=== PATIENT | female | born 1990 | race Caucasian/White ===

== ENCOUNTER 2016-10-26 19:38 | Emergency (ER) | payer SELFPAY ==
[2016-10-26 19:49] VITALS: BP 114/83
--- NOTE | 2016-10-26 19:57 | EDM.PDOC ---
ED HPI GENERAL MEDICAL PROBLEM - General Chief Complaint: Skin Complaint Stated Complaint: RASH ALL OVER BODY Time Seen by Provider: 10/26/16 19:48 Source of Information: Reports: Patient, RN Notes Reviewed History Limitations: Reports: No Limitations - History of Present Illness INITIAL COMMENTS - FREE TEXT/NARRATIVE: The patient states that she developed a pruritic rash all over her body yesterday, with some local swelling. The rash does not seem to extend to her face, but she feels pruritic everywhere else. She states that she took some Benadryl which helped, but the rash then recurred. She has been taking Benadryl repeatedly since. She denies any symptoms of angioedema, such as lip, tongue, or throat swelling. No dyspnea or wheezing. No recent fever. The patient denies recent travel. She denies any recent bug or tick bites. No recent hiking. No prior similar symptoms. The patient does not have a PCP. 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 Other OB/BYN History: - Infectious Disease History Infectious Disease History: Reports: Chicken Pox - Past Surgical History HEENT Surgical History: Reports: Oral Surgery ([place] teeth extraction) Female Surgical History: Reports: D&C (x 1), Tubal Ligation Social & Family History - Family History Family Medical History: Noncontributory Cardiac: Reports: Hypertension - Tobacco Use Smoking Status *Q: Never Smoker Second Hand Smoke Exposure: No - Caffeine Use Caffeine Use: Reports: Coffee, Energy Drinks, Soda - Alcohol Use Alcohol Use History: Yes Days Per Week of Alcohol Use: 0 Alcohol Use Frequency: Rarely - Recreational Drug Use Recreational Drug Use: No - Living Situation & Occupation Living situation: Reports: Single, with Significant Other (Boyfriend), with Family (Son, daughter) Occupation: Employed (Part-time at [email or web address]) ED ROS GENERAL - Review of Systems Review Of Systems: See Below Constitutional: Reports: No Symptoms HEENT: Reports: No Symptoms Respiratory: Reports: No Symptoms Cardiovascular: Reports: No Symptoms Endocrine: Reports: No Symptoms GI/Abdominal: Reports: No Symptoms : Reports: No Symptoms Musculoskeletal: Reports: No Symptoms Skin: Reports: No Symptoms Neurological: Reports: No Symptoms Psychiatric: Reports: No Symptoms Hematologic/Lymphatic: Reports: No Symptoms Immunologic: Reports: No Symptoms ED EXAM, SKIN/RASH Exam: See Below Exam Limited By: No Limitations General Appearance: Alert, WD/WN, No Apparent Distress Eye Exam: Bilateral Eye: Normal Inspection Ears: Normal External Exam, Hearing Grossly Normal Nose: Normal Inspection, No Blood Throat/Mouth: Normal Inspection, Normal Lips, Normal Teeth, Normal Gums, Normal Oropharynx, Normal Voice, No Airway Compromise Head: Atraumatic, Normocephalic Neck: Normal Inspection, Full Range of Motion Respiratory/Chest: No Respiratory Distress, Lungs Clear, Normal Breath Sounds, No Accessory Muscle Use Cardiovascular: Normal Peripheral Pulses, Regular Rate, Rhythm, No Gallop, No JVD, No Murmur, No Rub Peripheral Pulses: 4+: Radial (L), Radial (R) GI/Abdominal: Normal Bowel Sounds, Soft, Non-Tender, No Organomegaly, No Distention, No Abnormal Bruit, No Mass (Female) Exam: Deferred Rectal (Female) Exam: Deferred Back Exam: Normal Inspection, Full Range of Motion Extremities: Normal Range of Motion, Non-Tender, Normal Capillary Refill Neurological: Alert, Oriented, Normal Cognition, No Motor/Sensory Deficits Psychiatric: Normal Affect Skin: Warm, Dry, Intact, Normal Color, Rash (Several erythematous papules measuring approximately 0.5 cm diameter, likely blanchable, scattered primarily on the extremities and lower abdomen. Only a couple, if any lesions noted on the back. Mild swelling to the feet. No lesions noted on the palms or soles, although the patient reports pruritus to these areas.) Lymphatic: No Adenopathy Course - Vital Signs Last Recorded V/S: Last Vital Signs Temp 36.7 C 10/26/16 19:46 Pulse 76 10/26/16 19:46 Resp 20 10/26/16 19:46 BP 114/83 10/26/16 19:46 Pulse Ox 98 10/26/16 19:46 - Orders/Labs/Meds Meds: Medications Discontinued Medications Generic Name Dose Route Start Last Admin Trade Name Cristina REALN Reason Stop Dose Admin Prednisone 60 mg 10/26/16 20:27 10/26/16 20:35 Prednisone PO 10/26/16 20:28 60 mg ONETIME STA Administration - Re-Assessments/Exams Free Text/Narrative Re-Assessment/Exam: 10/26/16 20:31 The etiology of the patient's rash is unclear. [place] spotted fever was considered, however, the patient has not had a fever, headache, or nausea, and while she has some swelling that makes her joints tight, she has not had true arthralgias, and while she has some muscle aches associated with exercising, she has not had true myalgias. Additionally, she has not been traveling or out hiking, and does not recall having been bitten by a tick or any other insect. Contact dermatitis is less likely, because, as above, she has not been outside, or exposed to toxins such as poison chao. The distribution does not fit with atopic dermatitis. The appearance of the rash itself, along with the distribution does not fit with bullous pemphigoid. The appearance of the rash does not fit with cutaneous T-cell lymphoma. The distribution of the rash does not fit with dermatitis herpetiformis. The appearance of the rash and the distribution does not fit with dermatophyte infection. The appearance of the rash does not fit with folliculitis. The distal B shows rash does not fit with lichen planus or lichen simplex chronicus. The appearance of the rash and distribution do not fit with scabies. Because the patient derives temporary relief with Benadryl, I have to conclude that this is some sort of an allergic reaction. I'm going to treat her with prednisone, but will also refer her to a Packaging Assembler, should her symptoms not improve with prednisone, or should her symptoms recur after the prednisone is finished. Departure - Departure Time of Disposition: 20:33 Disposition: Home, Self-Care 01 Condition: Good Clinical Impression: Pruritic rash - Discharge Information Prescriptions: Prednisone [IJD: predniSONE] 20 mg PO QPM #5 tab Instructions: Pruritus Referrals: PCP,None [Primary Care Provider] - Javier Callejas MD [Ordering Only Provider] - Forms: ED Department Discharge Additional Instructions: You were seen in the emergency room for a generalized itchy rash. The cause of her rash is unclear, but appears to be some sort of an allergic reaction. You have been started on the steroid medicine prednisone. Take 1 tablet with dinner, starting tomorrow, 10/27/2016, as prescribed. Finish the entire prescription unless told otherwise by a doctor. You may also take an antihistamine, such as Benadryl or Claritin. If your symptoms fail to improve, or if they recur after you've finished the prednisone, please follow-up with the Packaging Assembler Dr. Callejas. If any other problems, please do not hesitate to return to the ER.
[2016-10-26] MEDS ORDERED: predniSONE 20 MG Tab PO STA (20:27)
== END 2016-10-26 20:50 | disposition home or self-care (01) ==
LOC: JD.ED 19:38
DX: L29.9 Pruritus, unspecified (principal); Z79.899 Other long term (current) drug therapy; Z98.51 Tubal ligation status; Z98.890 Other specified postprocedural states
CPT/HCPCS: 99283; A9270

== ENCOUNTER 2016-10-30 08:47 | Emergency (ER) | payer SELFPAY ==
[2016-10-30 08:56] VITALS: BP 119/72
[2016-10-30] MEDS ORDERED: Famotidine 20 MG Tab PO ONE (09:03)
[2016-10-30] MEDS ORDERED: methylPREDNISolone Sodium Succinate 125 MG/2 ML SDV IM ONE (09:03)
--- NOTE | 2016-10-30 09:09 | EDM.PDOC ---
ED HPI GENERAL MEDICAL PROBLEM - General Chief Complaint: Skin Complaint Stated Complaint: SKIN COMPLAINT/BODY RASH Time Seen by Provider: 10/30/16 08:57 Source of Information: Reports: Patient History Limitations: Reports: No Limitations - History of Present Illness INITIAL COMMENTS - FREE TEXT/NARRATIVE: The patient presents with a generalized rash. This started on Saturday. She was evaluated here and she was put on prednisone 20mg daily and continued benadryl. She has not gotten any better. She has no shortness of breath and no trouble swallowing. She has not been in contact with any allergen that she knows of. This has never happened before. Onset: Gradual Duration: Day(s): Location: Reports: Generalized Quality: Reports: Burning Severity: Moderate Improves with: Reports: None Worsens with: Reports: Other (Heat) Associated Symptoms: Reports: No Other Symptoms - Related Data Allergies Allergy/AdvReac Type Severity Reaction Status Date / Time No Known Allergies Allergy Verified 10/30/16 08:52 Home Meds: Home Meds Cholecalciferol (Vitamin D3) [Vitamin D] 1,000 units PO DAILY 10/26/16 [History] Prednisone [IJD: predniSONE] 20 mg PO QPM #5 tab 10/26/16 [Rx] Prednisone [IJD: predniSONE] 40 mg PO WITHBREAKFAST #10 tab 10/30/16 [Rx] Past Medical History - Past Health History Medical/Surgical History: Denies Medical/Surgical History HEENT History: Reports: None Cardiovascular History: Reports: None Respiratory History: Reports: None Gastrointestinal History: Reports: GERD, Other (See Below) Other Gastrointestinal History: N/V with Genitourinary History: Reports: UTI, Recurrent 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 Endocrine/Metabolic History: Reports: None Hematologic History: Reports: Anemia, Iron Deficiency Other Hematologic History: anemia during 1st . - Infectious Disease History Infectious Disease History: Reports: Chicken Pox - Past Surgical History HEENT Surgical History: Reports: Oral Surgery Female Surgical History: Reports: D&C, Tubal Ligation Social & Family History - Family History Family Medical History: Noncontributory Cardiac: Reports: Hypertension - Tobacco Use Smoking Status *Q: Never Smoker Years of Tobacco use: 1 Used Tobacco, but Quit: No Second Hand Smoke Exposure: No - Caffeine Use Caffeine Use: Reports: Coffee, Energy Drinks, Soda - Alcohol Use Days Per Week of Alcohol Use: 0 - Recreational Drug Use Recreational Drug Use: No - Living Situation & Occupation Living situation: Reports: Single, with Significant Other (Boyfriend), with Family (Son, daughter) Occupation: Employed (Part-time at [employer]) ED ROS GENERAL - Review of Systems Review Of Systems: See Below Constitutional: Reports: No Symptoms HEENT: Reports: No Symptoms Respiratory: Reports: No Symptoms Cardiovascular: Reports: No Symptoms Endocrine: Reports: No Symptoms GI/Abdominal: Reports: No Symptoms : Reports: No Symptoms Musculoskeletal: Reports: No Symptoms Skin: Reports: Rash ED EXAM, SKIN/RASH Exam: See Below Exam Limited By: No Limitations General Appearance: Alert, No Apparent Distress Ears: Normal External Exam Nose: Normal Inspection Head: Atraumatic, Normocephalic Neck: Normal Inspection Respiratory/Chest: No Respiratory Distress, Lungs Clear, Normal Breath Sounds Cardiovascular: Regular Rate, Rhythm, No Edema, No Murmur GI/Abdominal: Soft, Non-Tender, No Organomegaly, No Mass Back Exam: Normal Inspection Extremities: Normal Inspection Neurological: Alert, Oriented, No Motor/Sensory Deficits Skin: Rash (urticaria) Course - Vital Signs Last Recorded V/S: Last Vital Signs Temp 97.2 F 10/30/16 08:53 Pulse 87 10/30/16 08:53 Resp 16 10/30/16 08:53 BP 119/72 10/30/16 08:53 Pulse Ox 95 10/30/16 08:53 - Orders/Labs/Meds Orders: Active Orders 24 hr Category Date Time Status Famotidine [Pepcid] Med 10/30/16 09:03 Once 20 mg PO ONETIME ONE Meds: Medications Discontinued Medications Generic Name Dose Route Start Last Admin Trade Name Cristina PRN Reason Stop Dose Admin Methylprednisolone Sodium Succinate 125 mg 10/30/16 09:03 Solu-Medrol IM 10/30/16 09:04 ONETIME ONE - Re-Assessments/Exams Free Text/Narrative Re-Assessment/Exam: 10/30/16 09:09 I ordered solu-medrol 125mg IM and pepcid. I will up her prednisone and have her take pepcid also. She has an appointment with derm on the . Departure - Departure Time of Disposition: 09:10 Disposition: Home, Self-Care 01 Condition: Good Clinical Impression: Pruritic rash - Discharge Information Prescriptions: Prednisone [IJD: predniSONE] 40 mg PO WITHBREAKFAST #10 tab Referrals: PCP,None [Primary Care Provider] - Danica Simon PA [Physician Manufacturing Engineer Supervisor] - Forms: ED Department Discharge Additional Instructions: Take the prednisone 2 pills or 40mg daily for 5 days. Take benadryl 50mg every 6 hours as needed for the rash. Take pepcid daily for 5 days. Follow up with your commercial loan closer on the . You may also follow up with Danica Simon in our clinic if you have any other problems. - My Orders Last 24 Hours: My Active Orders 10/30/16 09:03 Famotidine [Pepcid] 20 mg PO ONETIME ONE - Assessment/Plan Last 24 Hours: My Active Orders 10/30/16 09:03 Famotidine [Pepcid] 20 mg PO ONETIME ONE
== END 2016-10-30 09:27 | disposition home or self-care (01) ==
LOC: JD.ED 08:47
DX: L50.9 Urticaria, unspecified (principal); L29.9 Pruritus, unspecified; K21.9 Gastro-esophageal reflux disease without esophagitis; Z79.899 Other long term (current) drug therapy; Z87.440 Personal history of urinary (tract) infections; Z86.2 Personal history of diseases of the blood and blood-forming organs and certain disorders involving the immune mechanism
CPT/HCPCS: 96372; 99282; A9270; J2930; 99283

== ENCOUNTER 2019-08-28 09:37 | Emergency (ER) | payer MEDICAID ==
--- NOTE | 2019-08-28 10:33 | EDM.PDOC ---
ED HPI GENERAL MEDICAL PROBLEM - General Chief Complaint: Back Pain or Injury Stated Complaint: BACK PAIN/COUGHED UP BLOOD Time Seen by Provider: 08/28/19 10:04 Source of Information: Reports: Patient, RN Notes Reviewed - History of Present Illness INITIAL COMMENTS - FREE TEXT/NARRATIVE: 29 yr old female has been having some R mid back pain for about a week. Occasional radiation of pain to R upper abd. Pain at times is worse with deep respiration. Has not been ill with cough, sore throat, fever or chills. No known covid exposure. Today when working out at [employer] she did cough up a couple of small blood clots. She did have a mild nose bleed earlier this morning so agrees that this could have been post nasal drainage. No bladder sx. No personal hx gallbladder problems. Right Back Pain Score (Numeric/FACES): 6 - Related Data Allergies Allergy/AdvReac Type Severity Reaction Status Date / Time No Known Allergies Allergy Verified 08/28/19 09:50 Home Meds: Home Meds Cholecalciferol (Vitamin D3) [Vitamin D] 1,000 units PO DAILY 10/26/16 [History] Fish Oil/Lydia-3 Fatty Acids [Fish Oil 1,000 MG] 0 mg PO DAILY 08/28/19 [History ] Lactobacillus Rhamnosus [id number] [Probiotic Digestive Care] 1 cap PO DAILY [History] Past Medical History - Past Health History Medical/Surgical History: Denies Medical/Surgical History HEENT History: Reports: None Cardiovascular History: Reports: None Respiratory History: Reports: None Gastrointestinal History: Reports: GERD, Other (See Below) Other Gastrointestinal History: N/V with Genitourinary History: Reports: UTI, Recurrent 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 Endocrine/Metabolic History: Reports: None Hematologic History: Reports: Anemia, Iron Deficiency Other Hematologic History: anemia during 1st . - Infectious Disease History Infectious Disease History: Reports: Chicken Pox - Past Surgical History HEENT Surgical History: Reports: Oral Surgery Other HEENT Surgeries/Procedures: wisdom teeth removed. Female Surgical History: Reports: D&C, Tubal Ligation Social & Family History - Family History Family Medical History: Noncontributory Cardiac: Reports: Hypertension - Tobacco Use Smoking Status *Q: Never Smoker Second Hand Smoke Exposure: No - Caffeine Use Caffeine Use: Reports: Coffee, Energy Drinks - Recreational Drug Use Recreational Drug Use: No - Living Situation & Occupation Living situation: Reports: Single, with Significant Other (Boyfriend), with Family (Son, daughter) Occupation: Employed (Part-time at [employer]) ED ROS GENERAL - Review of Systems Review Of Systems: See Below Constitutional: Denies: Fever, Chills, Diaphoresis HEENT: Reports: Nosebleed Respiratory: Denies: Shortness of Breath, Cough (no frequent or repetitve cough , she did "cough up a couple of blood clots a short time ago") Cardiovascular: Denies: Chest Pain GI/Abdominal: Reports: Abdominal Pain. Denies: Diarrhea, Hematochezia, Melena, Nausea, Vomiting Musculoskeletal: Reports: Back Pain. Denies: Shoulder Pain, Arm Pain Skin: Reports: No Symptoms Neurological: Reports: No Symptoms ED EXAM, GENERAL - Physical Exam Exam: See Below General Appearance: Alert, No Apparent Distress Eye Exam: Bilateral Eye: PERRL Throat/Mouth: Normal Inspection Head: Atraumatic Neck: Supple Respiratory/Chest: No Respiratory Distress, Lungs Clear, Normal Breath Sounds. No: Rales, Rhonchi, Wheezing Cardiovascular: Regular Rate, Rhythm GI/Abdominal: Soft, Non-Tender Back Exam: Normal Inspection, Full Range of Motion. No: Paraspinal Tenderness, Vertebral Tenderness Extremities: Normal Inspection, Normal Range of Motion Neurological: Alert, Oriented, No Motor/Sensory Deficits Skin Exam: Warm, Dry, Normal Color Course - Vital Signs Last Recorded V/S: Last Vital Signs Temp 98.5 F 08/28/19 11:48 Pulse 80 08/28/19 11:48 Resp 16 08/28/19 11:48 BP 112/82 08/28/19 11:48 Pulse Ox 98 08/28/19 11:48 - Orders/Labs/Meds Labs: Laboratory Tests 08/28/19 08/28/19 08/28/19 Range/Units 10:27 10:27 10:27 WBC 5.83 (3.98-10.04) K/mm3 RBC 4.16 (3.98-5.22) M/mm3 Hgb 11.7 D (11.2-15.7) gm/dl Hct 36.5 (34.1-44.9) % MCV 87.7 D (79.4-94.8) fl MCH 28.1 (25.6-32.2) pg MCHC 32.1 L (32.2-35.5) g/dl RDW Std Deviation 40.6 (36.4-46.3) fL Plt Count 265 (182-369) K/mm3 MPV 8.7 L (9.4-12.3) fl Neut % (Auto) 67.7 (34.0-71.1) % Lymph % (Auto) 21.3 (19.3-51.7) % [place] % (Auto) 10.3 (4.7-12.5) % Eos % (Auto) 0.5 L (0.7-5.8) Baso % (Auto) 0.2 (0.1-1.2) % Neut # (Auto) 3.95 (1.56-6.13) K/mm3 Lymph # (Auto) 1.24 (1.18-3.74) K/mm3 [place] # (Auto) 0.60 H (0.24-0.36) K/mm3 Eos # (Auto) 0.03 L (0.04-0.36) K/mm3 Baso # (Auto) 0.01 (0.01-0.08) K/mm3 Sodium 138 (136-145) mEq/L Potassium 3.7 (3.5-5.1) mEq/L Chloride 103 (98-107) mEq/L Carbon Dioxide 27 (21-32) mEq/L Anion Gap 11.7 (5-15) BUN 12 (7-18) mg/dL Creatinine 0.6 (0.55-1.02) mg/dL Est Cr Clr Drug Dosing 124.49 mL/min Estimated GFR (MDRD) > 60 (>60) mL/min BUN/Creatinine Ratio 20.0 H (14-18) Glucose 104 (74-106) mg/dL Calcium 9.2 (8.5-10.1) mg/dL Total Bilirubin 0.5 (0.2-1.0) mg/dL AST 20 (15-37) U/L ALT 30 (14-59) U/L Alkaline Phosphatase 56 (46-116) U/L C-Reactive Protein 1.3 H* (<1.0) mg/dL Total Protein 7.2 (6.4-8.2) g/dl Albumin 3.7 (3.4-5.0) g/dl Globulin 3.5 gm/dL Albumin/Globulin Ratio 1.1 (1-2) HCG, Qual (NEGATIVE) Urine Color (Yellow) Urine Appearance (Clear) Urine pH (5.0-8.0) Ur Specific [place] (1.005-1.030) Urine Protein (Negative) Urine Glucose (UA) (Negative) Urine Ketones (Negative) Urine Occult Blood (Negative) Urine Nitrite (Negative) Urine Bilirubin (Negative) Urine Urobilinogen (0.2-1.0) Ur Leukocyte Esterase (Negative) Urine RBC (0-5) /hpf Urine WBC (0-5) /hpf Ur Squamous Epith Cells (0-5) /hpf Urine Bacteria (FEW) /hpf Urine Mucus (FEW) /hpf 08/28/19 08/28/19 Range/Units 10:27 10:55 WBC (3.98-10.04) K/mm3 RBC (3.98-5.22) M/mm3 Hgb (11.2-15.7) gm/dl Hct (34.1-44.9) % MCV (79.4-94.8) fl MCH (25.6-32.2) pg MCHC (32.2-35.5) g/dl RDW Std Deviation (36.4-46.3) fL Plt Count (182-369) K/mm3 MPV (9.4-12.3) fl Neut % (Auto) (34.0-71.1) % Lymph % (Auto) (19.3-51.7) % [place] % (Auto) (4.7-12.5) % Eos % (Auto) (0.7-5.8) Baso % (Auto) (0.1-1.2) % Neut # (Auto) (1.56-6.13) K/mm3 Lymph # (Auto) (1.18-3.74) K/mm3 [place] # (Auto) (0.24-0.36) K/mm3 Eos # (Auto) (0.04-0.36) K/mm3 Baso # (Auto) (0.01-0.08) K/mm3 Sodium (136-145) mEq/L Potassium (3.5-5.1) mEq/L Chloride (98-107) mEq/L Carbon Dioxide (21-32) mEq/L Anion Gap (5-15) BUN (7-18) mg/dL Creatinine (0.55-1.02) mg/dL Est Cr Clr Drug Dosing mL/min Estimated GFR (MDRD) (>60) mL/min BUN/Creatinine Ratio (14-18) Glucose (74-106) mg/dL Calcium (8.5-10.1) mg/dL Total Bilirubin (0.2-1.0) mg/dL AST (15-37) U/L ALT (14-59) U/L Alkaline Phosphatase (46-116) U/L C-Reactive Protein (<1.0) mg/dL Total Protein (6.4-8.2) g/dl Albumin (3.4-5.0) g/dl Globulin gm/dL Albumin/Globulin Ratio (1-2) HCG, Qual Negative (NEGATIVE) Urine Color Yellow (Yellow) Urine Appearance Clear (Clear) Urine pH 6.5 (5.0-8.0) Ur Specific [place] 1.015 (1.005-1.030) Urine Protein Negative (Negative) Urine Glucose (UA) Negative (Negative) Urine Ketones 1+ H (Negative) Urine Occult Blood Negative (Negative) Urine Nitrite Negative (Negative) Urine Bilirubin Negative (Negative) Urine Urobilinogen 0.2 (0.2-1.0) Ur Leukocyte Esterase Trace H (Negative) Urine RBC 0-5 (0-5) /hpf Urine WBC 5-10 H (0-5) /hpf Ur Squamous Epith Cells 0-5 (0-5) /hpf Urine Bacteria Few (FEW) /hpf Urine Mucus Few (FEW) /hpf - Re-Assessments/Exams Free Text/Narrative Re-Assessment/Exam: 08/28/19 15:09 CXR nl, labs nl, discharge instr. as documented. Feel strongly that the blood clots she coughed up this AM were post nasal drainage from the epistaxis that she had earlier today. Departure - Departure Time of Disposition: 11:40 Disposition: Home, Self-Care 01 Condition: Fair Clinical Impression: Back pain Abdominal pain Qualifiers: Abdominal location: generalized Qualified Code(s): R10.84 - Generalized abdominal pain - Discharge Information Instructions: Acute Back Pain, Adult, Abdominal Pain, Adult, [id number] Referrals: PCP,None [Primary Care Provider] - Forms: ED Department Discharge Additional Instructions: Avoid heavy lifting or anything that makes the back pain worse until discomfort resolving. Alternate ice and heat as needed. Follow up clinic as needed, return to ED as needed if symptoms worsening in any way. Sepsis Event Note - Evaluation Sepsis Screening Result: No Definite Risk - Focused Exam Vital Signs: Vital Signs Temp Pulse Resp BP Pulse Ox 08/28/19 11:48 98.5 F 80 16 112/82 98 08/28/19 09:45 99.2 F 92 16 125/85 98 Date Exam was Performed: 08/28/19 Time Exam was Performed: 15:08
--- NOTE | 2019-08-28 11:38 | CR ---
Chest: Portable view of the chest was obtained. Comparison: Prior chest x-ray of 08/18/15. Heart size and mediastinum are normal. Lungs are clear with no acute parenchymal change. Bony structures are grossly intact. Impression: 1. Nothing acute is seen on portable chest x-ray. Diagnostic code #1 This report was dictated in MDT
[2019-08-28 11:52] VITALS: BP 112/82; PULSE 80
== END 2019-08-28 11:48 | disposition home or self-care (01) ==
LOC: JD.ED 09:37
DX: M54.6 Pain in thoracic spine (principal); R10.84 Generalized abdominal pain
CPT/HCPCS: 36415; 71045; 71045-26; 80053; 81001; 84703; 85025; 86140; 99282; 99283

== ENCOUNTER 2021-01-28 14:33 | Emergency (ER) | payer SELFPAY ==
[2021-01-28 14:42] VITALS: BP 130/87; PULSE 114
[2021-01-28] MEDS ORDERED: Ketorolac 60 MG/2 ML SDV IM ONE (14:49)
[2021-01-28] MEDS ORDERED: Orphenadrine 100 MG Tab.ER PO ONE (14:49)
--- NOTE | 2021-01-28 14:55 | EDM.PDOC ---
ED HPI GENERAL MEDICAL PROBLEM - General Chief Complaint: Back Pain or Injury Stated Complaint: BACK PAIN Time Seen by Provider: 01/28/21 14:38 Source of Information: Reports: Patient, RN Notes Reviewed History Limitations: Reports: No Limitations - History of Present Illness INITIAL COMMENTS - FREE TEXT/NARRATIVE: Patient is a 30-year-old female presents to the ER for her low back pain. States that she was performing in a weightlifting competition, and performing a kettle corbett snatch type lift, states that when she, from the squatting position to try to raise a kettle corbett overhead, she felt a pop or snap in her low back and had pain in this area and it seems to radiate down her right leg after this. States that she has a pretty high pain tolerance and this is some of the worst pain she is ever felt in her life. Took 2 tablets of Tylenol prior to coming to the ER but this does not seem to be helping much. Patient is visibly uncomfortable on the ER cot states that sitting down, while she puts pressure on her back seems to make things a little bit worse. When she was driving over here, she maybe felt some tingling in her right foot but this has subsided since being in the ER. She has no prior history of any sort injuries to her back at this time. Patient denies any other sick-like symptoms, fever/chills, cough/shortness of breath, nausea/vomiting/diarrhea. Left Back Pain Score (Numeric/FACES): 8 - Related Data Allergies Allergy/AdvReac Type Severity Reaction Status Date / Time No Known Allergies Allergy Verified 01/28/21 14:42 Home Meds: Home Meds Cholecalciferol (Vitamin D3) [Vitamin D] 1,000 units PO DAILY 10/26/16 [History] Fish Oil/Rodessa-3 Fatty Acids [Fish Oil 1,000 MG] 0 mg PO DAILY 08/28/19 [History] Lactobacillus Rhamnosus R0011 [Probiotic Digestive Care] 1 cap PO DAILY 08/28/19 [History] Hydrocodone/Acetaminophen [HYDROcodone-Acetaminophen 5-325 MG] 1 each PO Q6H PRN #12 tablet 01/28/21 [Rx] Orphenadrine [Norflex] 100 mg PO BID PRN #20 tab 01/28/21 [Rx] Past Medical History Gastrointestinal History: Reports: GERD, Other (See Below) Other Gastrointestinal History: N/V with Genitourinary History: Reports: UTI, Recurrent STAFFING SPECIALIST History: Reports: Ectopic , , Spontaneous (x3) : 4 Para: 1 Psychiatric History: Reports: Depression Other Psychiatric History: states is on med for depression. Hematologic History: Reports: Anemia, Iron Deficiency Other Hematologic History: anemia during 1st . - Infectious Disease History Infectious Disease History: Reports: Chicken Pox - Past Surgical History HEENT Surgical History: Reports: Oral Surgery Other HEENT Surgeries/Procedures: wisdom teeth removed. Female Surgical History: Reports: D&C, Tubal Ligation Social & Family History - Family History Family Medical History: No Pertinent Family History Cardiac: Reports: Hypertension - Tobacco Use Tobacco Use Status *Q: Never Tobacco User Second Hand Smoke Exposure: No - Caffeine Use Caffeine Use: Reports: None - Recreational Drug Use Recreational Drug Use: No - Living Situation & Occupation Living situation: Reports: Single, with Significant Other (Boyfriend), with Family (Son, daughter) Occupation: Employed (Part-time at [employer]) ED ROS GENERAL - Review of Systems Review Of Systems: Comprehensive ROS is negative, except as noted in HPI. ED EXAM,LOWER BACK PAIN/INJURY - Physical Exam Exam: See Below Exam Limited By: No Limitations General Appearance: Alert, WD/WN, No Apparent Distress Respiratory/Chest: No Respiratory Distress, Lungs Clear, Normal Breath Sounds, No Accessory Muscle Use, Chest Non-Tender Cardiovascular: Normal Peripheral Pulses, Regular Rate, Rhythm, No Edema GI/Abdominal: Normal Bowel Sounds, Soft, Non-Tender, No Distention, No Mass Extremities: Normal Inspection, Normal Capillary Refill Neurological: Alert, Normal Mood/Affect, Normal Dorsiflexion, Normal Plantar Flexion, Straight Leg Raise (R). No: Straight Leg Raise (L), Saddle Anesthesia Psychiatric: Normal Affect, Normal Mood, Tearful Skin Exam: Warm, Dry, Intact, Normal Color, No Rash Course - Vital Signs Last Recorded V/S: Last Vital Signs Temp 98.1 F 01/28/21 14:41 Pulse 114 H 01/28/21 14:41 Resp 20 01/28/21 14:41 BP 130/87 01/28/21 14:41 Pulse Ox 95 01/28/21 14:41 - Orders/Labs/Meds Orders: Active Orders 24 hr Category Date Time Status Lumbar Spine 2 or 3V [CR] Stat Exams 01/28/21 14:47 Ordered Labs: Laboratory Tests 01/28/21 Range/Units 14:40 Urine Color Yellow (Yellow) Urine Appearance Clear (Clear) Urine pH 6.0 (5.0-8.0) Ur Specific [place] 1.020 (1.005-1.030) Urine Protein Negative (Negative) Urine Glucose (UA) Negative (Negative) Urine Ketones Negative (Negative) Urine Occult Blood Negative (Negative) Urine Nitrite Negative (Negative) Urine Bilirubin Negative (Negative) Urine Urobilinogen 0.2 (0.2-1.0) Ur Leukocyte Esterase Negative (Negative) Urine RBC 0-5 (0-5) /hpf Urine WBC 0-5 (0-5) /hpf Ur Squamous Epith Cells 5-10 H (0-5) /hpf Urine Bacteria Few (FEW) /hpf Urine Mucus Not seen (FEW) /hpf Meds: Medications Discontinued Medications Generic Name Dose Route Start Last Admin Trade Name Cristina PRN Reason Stop Dose Admin Ketorolac Tromethamine 60 mg 01/28/21 14:49 01/28/21 15:02 Ketorolac 60 Mg/2 Ml Sdv IM 01/28/21 14:50 60 mg ONETIME ONE Administration Orphenadrine Citrate 100 mg 01/28/21 14:49 01/28/21 15:02 Orphenadrine 100 Mg Tab.Er PO 01/28/21 14:50 100 mg ONETIME ONE Administration - Re-Assessments/Exams Free Text/Narrative Re-Assessment/Exam: 01/28/21 14:54 Patient presents to the ER for evaluation of her low back pain. She does appear to be fairly uncomfortable in the ER cot, we will go ahead and try Toradol and Norflex initially and add other stronger meds if needed. We will also get a lumbar x-ray for evaluation. 01/28/21 15:45 Patient states she is a little bit more comfortable. Patient's lumbar x-rays were reviewed by myself and Dr. Smith, no acute bony abnormalities were appreciated. Lumbar heights appear to be within normal limits, and there is no obvious sign of any sort of acute compression fracture at this time. We will go ahead and treat the patient conservatively and have her follow-up in 7 to 10 days if not much better. Departure - Departure Time of Disposition: 15:45 Disposition: Home, Self-Care 01 Condition: Good Clinical Impression: Acute lumbar myofascial strain Qualifiers: Encounter type: initial encounter Qualified Code(s): S39.012A - Strain of muscle, fascia and tendon of lower back, initial encounter - Discharge Information *PRESCRIPTION DRUG MONITORING PROGRAM REVIEWED*: Yes *COPY OF PRESCRIPTION DRUG MONITORING REPORT IN PATIENT ELICEO: No Prescriptions: Hydrocodone/Acetaminophen [HYDROcodone-Acetaminophen 5-325 MG] 1 each PO Q6H PRN #12 tablet PRN Reason: Pain Orphenadrine [Norflex] 100 mg PO BID PRN #20 tab PRN Reason: Spasms Instructions: Back Injury Prevention, Hode-es-Mgna Referrals: PCP,None [Primary Care Provider] - Forms: ED Department Discharge Additional Instructions: You have been evaluated in the ED for your low back pain. Your x-ray demonstrated no acute fractures, or other bony abnormalities like compression fractures. Please use ice or heat as tolerated to the affected area. You may take Tylenol 500 mg or ibuprofen 600mg q6 hrs for pain relief. Please do so until you have a tolerable level of pain with activity. Do not exceed 4000mg Tylenol or 3200mg ibuprofen in a 24 hour time period. You were given a prescription for a strong pain medication, hydrocodone/acetaminophen 5/225 mg, please take 1 tab every 6 hours as needed for pain not relieved by Tylenol or ibuprofen alone. Please note this medication does contain Tylenol in it, so do not take more than 4000 mg in a 24- hour time span. These medications can be addictive, so please take as few as possible to achieve adequate pain control. These meds can also be quite constipating, recommend that you increase your oral fluid intake and take a stool softener like MiraLAX while taking these medications. Do not drive while taking this medication. You have also been given a prescription for Norflex, a muscle relaxer, please take 1 tablet 2 times a day as needed for ongoing muscle spasms/stiffness. Please be aware that if you need to take the hydrocodone medications in conjunction with the Norflex, that you might feel increasingly tired so you might want to adjust your activities as warranted. This medication was electronically sent to the [place] [facility] located in the [facility]. Please follow-up with your regular provider for re-evaluation, if your injury is not feeling much better in roughly 7 to 10 days time. Please return to ED if your symptoms should change or worsen. Sepsis Event Note (ED) - Focused Exam Vital Signs: Vital Signs Temp Pulse Resp BP Pulse Ox 01/28/21 14:41 98.1 F 114 H 20 130/87 95 - My Orders Last 24 Hours: My Active Orders 01/28/21 14:47 Lumbar Spine 2 or 3V [CR] Stat - Assessment/Plan Last 24 Hours: My Active Orders 01/28/21 14:47 Lumbar Spine 2 or 3V [CR] Stat
--- NOTE | 2021-01-28 18:00 | CR ---
Lumbar spine: AP and lateral views of the lumbar spine were obtained. Comparison: No prior lumbar spine imaging is available. There is minimal anterior wedging seen of T12. Small osteophyte is noted off the superior endplate. Other vertebral body heights are maintained. Disc spaces are maintained. Pedicles are intact. Transverse and spinous processes are intact. Sacroiliac joints are within normal limits. Impression: 1. Slight anterior wedging of T12. Uncertain if this is chronic or represents acute change. MRI would be needed to differentiate. 2. Minimal osteophyte off the superior endplate of T12. 3. Two-view lumbar spine study is otherwise unremarkable. Diagnostic code #3
== END 2021-01-28 16:47 | disposition home or self-care (01) ==
LOC: JD.ED 14:33
DX: S39.012A Strain of muscle, fascia and tendon of lower back, initial encounter (principal); X50.0XXA Overexertion from strenuous movement or load, initial encounter
CPT/HCPCS: 72100; 81001; 96372; 99283; A9270; J1885

== ENCOUNTER 2023-02-21 11:05 | Emergency (ER) | payer SELFPAY ==
[2023-02-21 12:28] LABS: HEMATOCRIT 38.1 % (37.0-47.0); HEMOGLOBIN 13.3 gm/dl (12.0-16.0); IMMATURE GRAN ABSOLUTE AUTO 0.01 K/mm3 (0.00-0.05); IMMATURE GRAN PERCENT AUTO 0.3 % (0.0-0.4); LYMPHOCYTES ABSOLUTE AUTO 1.4 K/mm3 (1.0-4.8); LYMPHOCYTES PERCENT AUTO 35.9 % (24.0-44.0); MEAN CORPUSCULAR HEMOGLOBIN 30.3 pg (28.0-32.0); MEAN CORPUSCULAR HGB CONC 34.9 g/dl (32.0-36.0); MEAN CORPUSCULAR VOLUME 86.8 fl (83.0-99.0); MEAN PLATELET VOLUME 9.5 fl (9.4-12.3); MONOCYTES ABSOLUTE AUTO 0.4 K/mm3 (0.0-0.8); MONOCYTES PERCENT AUTO 9.4 % (0.0-8.0); NEUTROPHILS ABSOLUTE AUTO 2.1 K/mm3 (1.8-7.7); NEUTROPHILS PERCENT AUTO 52.4 % (41.0-71.0); PLATELET COUNT,PLT 343 K/mm3 (150-400); RED BLOOD CELL COUNT 4.39 M/mm3 (4.10-5.30); WHITE BLOOD CELL COUNT,WBC 3.93 K/mm3 (3.9-11.3)
[2023-02-21 13:10] LABS: INR 0.97; PROTHROMBIN TIME 10.4 SECONDS (9.7-12.0)
[2023-02-21 13:11] LABS: PTT,PARTIAL THROMBOPLSTIN TIME 27.1 SECONDS (21.7-31.4)
[2023-02-21 13:21] LABS: D-DIMER QUANTITATIVE < 0.19 mg/L (0.19-0.50)
[2023-02-21 13:23] LABS: A/G RATIO 1.1 (1-2); ALANINE AMINOTRANSFERASE,ALT 32 U/L (14-59); ALBUMIN 3.8 g/dl (3.4-5.0); ALKALINE PHOSPHATASE 45 U/L (46-116); ANION GAP 9.8 (5-15); ASPARTATE AMNIOTRANSFERASE,AST 17 U/L (15-37); BILIRUBIN TOTAL 0.3 mg/dL (0.2-1.0); BLOOD UREA NITROGEN,BUN 12 mg/dL (7-18); CALCIUM 9.4 mg/dL (8.5-10.1); CARBON DIOXIDE,CO2 30 mEq/L (21-32); CHLORIDE,CL 102 mEq/L (98-107); CREATININE 0.8 mg/dL (0.55-1.02); EST CRCL DRUG DOSING (CG) 90.84 mL/min; ESTIMATED GFR 100 mL/min (>60); GLUCOSE RANDOM 90 mg/dL (70-99); POTASSIUM,K 3.8 mEq/L (3.5-5.1); PROTEIN TOTAL,TP 7.2 g/dl (6.4-8.2); SODIUM,NA 138 mEq/L (136-145); TSH 1.039 uIU/mL (0.358-3.74)
[2023-02-21 13:24] VITALS: BP 106/67; PULSE 61
[2023-02-21 13:24] LABS: TROPONIN I HIGH SENSITIVITY < 4 pg/mL (<=51)
[2023-02-21 13:39] LABS: FOLIC ACID 18.6 ng/mL (8.6-58.9)
== END 2023-02-21 14:30 | disposition home or self-care (01) ==
LOC: JD.ED 11:05
DX: R20.2 Paresthesia of skin (principal)
CPT/HCPCS: 36415; 70450; 70450-26; 80053; 82607; 82746; 82947; 84443; 84484; 85025; 85379; 85610; 85730; 93005; 93010; 99284; 99285

== ENCOUNTER 2023-07-02 14:26 | Emergency (ER) | payer SELFPAY ==
[2023-07-02 15:32] LABS: BASOPHILS PERCENT AUTO 0.4 % (0.0-1.0); EOSINOPHILS PERCENT AUTO 0.4 % (0.0-6.0); HEMATOCRIT 38.9 % (37.0-47.0); HEMOGLOBIN 13.4 gm/dl (12.0-16.0); IMMATURE GRAN ABSOLUTE AUTO 0.01 K/mm3 (0.00-0.05); IMMATURE GRAN PERCENT AUTO 0.1 % (0.0-0.4); LYMPHOCYTES ABSOLUTE AUTO 1.3 K/mm3 (1.0-4.8); LYMPHOCYTES PERCENT AUTO 18.6 % (24.0-44.0); MEAN CORPUSCULAR HEMOGLOBIN 29.2 pg (28.0-32.0); MEAN CORPUSCULAR HGB CONC 34.4 g/dl (32.0-36.0); MEAN CORPUSCULAR VOLUME 84.7 fl (83.0-99.0); MEAN PLATELET VOLUME 8.5 fl (9.4-12.3); MONOCYTES ABSOLUTE AUTO 0.4 K/mm3 (0.0-0.8); MONOCYTES PERCENT AUTO 6.3 % (0.0-8.0); NEUTROPHILS ABSOLUTE AUTO 5.2 K/mm3 (1.8-7.7); NEUTROPHILS PERCENT AUTO 74.2 % (41.0-71.0); PLATELET COUNT,PLT 305 K/mm3 (150-400); RED BLOOD CELL COUNT 4.59 M/mm3 (4.10-5.30); WHITE BLOOD CELL COUNT,WBC 6.98 K/mm3 (3.9-11.3)
[2023-07-02] MEDS: LORazepam 2 MG/ML SDV IVPUSH ONE (15:38)
[2023-07-02] MEDS: Sodium Chloride 0.9% 1,000 ML IV SCH (15:42)
[2023-07-02 16:06] LABS: A/G RATIO 1.2 (1-2); ALBUMIN 4.4 g/dl (3.4-5.0); ANION GAP 15.5 (5-15); BILIRUBIN TOTAL 0.3 mg/dL (0.2-1.0); BUN/CREATININE RATIO 17.8 (14-18); CALCIUM 9.5 mg/dL (8.5-10.1); CREATININE 0.9 mg/dL (0.55-1.02); EST CRCL DRUG DOSING (CG) 81.62 mL/min; POTASSIUM,K 3.5 mEq/L (3.5-5.1); PROTEIN TOTAL,TP 8.1 g/dl (6.4-8.2)
[2023-07-02 16:14] LABS: TSH 1.351 uIU/mL (0.358-3.74); VITAMIN D,25-HYDROXY 42.9 ng/ml (30.0-100.0)
[2023-07-02 16:39] LABS: APPEARANCE,URINE CLEAR (Clear); BILIRUBIN,URINE NEGATIVE (Negative); COLOR,URINE LIGHT YELLOW (Yellow); GLUCOSE,URINE NEGATIVE (Negative); KETONES,URINE 1+ (Negative); LEUKOCYTE ESTERASE,URINE NEGATIVE (Negative); NITRITE,URINE NEGATIVE (Negative); OCCULT BLOOD,URINE TRACE-INTACT (Negative); PROTEIN,URINE NEGATIVE (Negative); UROBILINOGEN,URINE 0.2 (0.2-1.0)
[2023-07-02 16:52] LABS: BARBITURATE SCREEN,URINE NEGATIVE (CUTOFF=200); BENZODIAZEPINES SCREEN,URINE NEGATIVE (CUTOFF=150); BUPRENORPHINE SCREEN,URINE NEGATIVE (CUTOFF=10); METHADONE SCREEN, URINE NEGATIVE (CUTOFF=200); METHAMPHETAMINES SCREEN, URINE NEGATIVE (CUTOFF=500); OXYCODONE SCREEN,URINE NEGATIVE (CUT0FF=100); THC SCREEN,URINE 20 NG/ML NEGATIVE (CUTOFF=50)
[2023-07-02 17:03] LABS: BACTERIA,URINE FEW /hpf (FEW); EPITHELIAL CELLS,URINE 0-5 /hpf (0-5); MUCUS,URINE FEW /hpf (FEW); RBC,URINE 0-5 /hpf (0-5); WBC,URINE 0-5 /hpf (0-5)
[2023-07-02 17:05] LABS: AMPHETAMINES SCREEN, URINE NEGATIVE (CUTOFF=500)
[2023-07-02 17:36] VITALS: BP 110/61; PULSE 98
== END 2023-07-02 17:15 | disposition home or self-care (01) ==
LOC: JD.ED 14:26
DX: F41.0 Panic disorder [episodic paroxysmal anxiety] (principal); F43.9 Reaction to severe stress, unspecified; Z79.899 Other long term (current) drug therapy; Z86.16 Personal history of COVID-19; Z86.19 Personal history of other infectious and parasitic diseases
CPT/HCPCS: 36415; 80053; 80306; 81001; 82306; 82607; 84443; 84703; 85025; 93005; 96374; 99285; J2060; J7030; 93010; 99284